=== PATIENT | female | born 1995 | race Hispanic/Latino ===

== ENCOUNTER 2022-06-15 00:13 | Emergency (ER) | payer BC ==
[~2022-06-15] VITALS: Ht 152.4 cm; Wt 76.2 kg
[2022-06-15] MEDS ORDERED: ACET-2079 PO (01:49)
[2022-06-15] MEDS ORDERED: PENI500T2 PO (01:49)
[2022-06-15] MEDS ORDERED: HYDROCODONE/ACETAMINOPHEN 10/325 MG TAB PO ONE (02:00)
[2022-06-15 02:04] VITALS: BP 139/76
== END 2022-06-15 01:58 | disposition home or self-care (01) ==
LOC: EDH 00:13
DX: K08.89 Other specified disorders of teeth and supporting structures (principal); T36.8X5A Adverse effect of other systemic antibiotics, initial encounter; Y92.89 Other specified places as the place of occurrence of the external cause
CPT/HCPCS: 93005

== ENCOUNTER 2025-02-01 18:26 | Emergency (ER) | payer SELFPAY ==
[~2025-02-01] VITALS: Ht 152.4 cm; Wt 81.6 kg
[~2025-02-01 18:26] MED LIST: ACET-2079 PO; PENI500T2 PO
--- NOTE | 2025-02-01 19:01 | NUR ---
PT PLACED INTO FAST TRACK AT THIS TIME
[2025-02-01 19:13] LABS: IMMATURE GRANULOCYTE ABSOLUTE 0.04 K/uL (0-1); NUCLEATED RED BLOOD CELLS 0.0 % (0.0-0.19); PLATELET COUNT (AUTO) 417 K/uL (130-400); RED BLOOD CELL COUNT(AUTO) 4.70 MIL/uL (4.00-5.50); RED CELL DISTRIBUTION WIDTH 12.7 % (11.0-15.5); WHITE BLOOD COUNT (AUTO) 12.4 K/uL (4.8-10.8)
[2025-02-01 19:35] LABS: CREATININE 0.6 mg/dL (0.5-1.0); GLOMERULAR FILTR. RATE CALC 124.0 mL/min (>90); GLUCOSE,RANDOM 203.0 mg/dL (70-105); SODIUM SERUM 141.0 mmol/L (136-145); UREA NITROGEN, BLOOD 16.0 mg/dL (7-18)
--- NOTE | 2025-02-01 20:34 | ERN ---
General Chief Complaint: Tooth Ache/Pain Stated Complaint: TOOTHACHE Time Seen by MD: 18:29 Time Seen by Midlevel: 18:29 Source: patient History of Present Illness Initial Comments The patient is a 29-year-old female with no significant past medical history presenting to the emergency department for evaluation of generalized body weakness. The patient states she was currently battling a tooth infection. She was seen at a local clinic a proximally two days ago and was started on a moxicillin. She does report having pain to her left upper molar but states that today she felt "off" with palpitations and wanted further evaluation. Allergies: Coded Allergies: No Known Drug Allergies (Unverified Allergy, Unknown, 06/15/22) Home Meds Active Scripts Acetaminophen with Codeine (Acetaminophen-Cod #3 Tablet) 1 Each Tablet, 1 TAB PO Q6H PRN for SEVERE PAIN (7-10), #12 TAB 0 Refills Prov:JEFF MONROY MD 06/15/22 Penicillin V Potassium (Penicillin V Potassium) 500 Mg Tablet, 1 TAB PO TID for 7 Days, #21 TAB 0 Refills Prov:JEFF MONROY MD 06/15/22 Past Medical History Past Medical History: Other Medical History Other: pituitary tumor no tx Past Surgical History: None Social History Social History: Other ROS Dictation CONSTITUTIONAL: Negative except for HPI HEAD/FACE: Negative except for HPI EENT: Negative except for HPI RESPIRATORY: Negative except for HPI GASTROINTESTINAL/ABDOMINAL: Negative except for HPI GENITOURINARY: Negative except for HPI MUSCULOSKELETAL: Negative except for HPI INTEGUMENTARY: Negative except for HPI NEUROLOGICAL/PSYCH: Negative except for HPI HEMATOLOGIC/LYMPHATIC: Negative except for HPI All Systems Negative, Except as noted above. 13 point review of systems assessed and all negative except for above. Physical Exam Physical Exam Dictation Vital Signs reviewed General Appearance: Alert, oriented x 3, no acute distress, well developed, nourished. Head and Face: non-traumatic. Eyes: PERRL, pink conjunctivas, eyelid no trauma, anterior chamber with arcus senilis. Ears: Pinnas intact and no signs of trauma or erythema ear canals clear and no discharge TM no erythema Nose: No discharge, no bleeding. Oropharynx: Mouth normal, tongue pink, pharynx clear,no erythema, tonsils no exudates, no abscesses noted, mucous membrane moist Neck: Supple, non-tender, no thyromegaly, no masses, no JVD, no bruits Breast:Deferred Chest:No tenderness, no crepitus, no paradoxical movement, no retractions Lungs:Clear, well-ventilated, symmetric, no rales, no wheezing, no rhonchi, no stridor, good breath sounds bilaterally Heart: Regular rate, regular rhythm, no murmur, no gallops Vascular: no peripheral edema, Abdomen: Soft, positive bowel sounds, nondistended, no guarding, nontender, no rebound, no masses no hepatomegaly, no splenomegaly, no Grant's sign, no hernias. Rectal: Deferred Genital: Deferred Neurological: Normal speech, motor function intact, sensory function intact Musculoskeletal: Neck nontender, full range of motion, back nontender, full range of motion, Extremities: nontender, full range of motion Skin: Color pink, dry, no turgor, no rash, no lacerations, no abrasions, no contusions. Lymphatic: Deferred Results Laboratory and Microbiology Lab and Micro Result Laboratory Tests Test 02/01/25 18:58 White Blood Count 12.4 K/uL (4.8-10.8) H Red Blood Count 4.70 MIL/uL (4.00-5.50) Hemoglobin 13.4 g/dL (12.0-16.0) Hematocrit 40.3 % (36-48) Mean Corpuscular Volume 85.7 fL (79-99) Mean Corpuscular Hemoglobin 28.5 pg (27.0-33.0) Mean Corpuscular Hemoglobin Concent 33.3 g/dL (32.0-36.0) Red Cell Distribution Width 12.7 % (11.0-15.5) Platelet Count 417 K/uL (130-400) H Mean Platelet Volume 10.5 fL (7.5-10.5) Immature Granulocyte % (Auto) 0.3 % (0-1) Neutrophils (%) (Auto) 64.6 % (40.0-77.0) Lymphocytes (%) (Auto) 26.7 % (21.0-51.0) Monocytes (%) (Auto) 5.9 % (3.0-13.0) Eosinophils (%) (Auto) 2.0 % (0.0-8.0) Basophils (%) (Auto) 0.5 % (0.0-5.0) Neutrophils # (Auto) 8.0 K/uL (1.8-7.7) H Lymphocytes # (Auto) 3.3 K/uL (1.0-4.8) Monocytes # (Auto) 0.7 K/uL (0.1-1.0) Eosinophils # (Auto) 0.25 K/uL (0.00-0.70) Basophils # (Auto) 0.06 K/uL (0.00-0.20) Absolute Immature Granulocyte (auto 0.04 K/uL (0-1) Nucleated Red Blood Cells 0.0 % (0.0-0.19) Sodium Level 141 mmol/L (136-145) Potassium Level 4.0 mmol/L (3.5-5.1) Chloride Level 101 mmol/L (101-111) Carbon Dioxide Level 29 mmol/L (21-32) Blood Urea Nitrogen 16 mg/dL (7-18) Creatinine 0.6 mg/dL (0.5-1.0) Glomerular Filtration Rate Calc 124 mL/min (>90) Random Glucose 203 mg/dL (70-105) H Total Calcium 9.1 mg/dL (8.5-10.1) Magnesium Level 1.80 mg/dL (1.80-2.40) Troponin I High Sensitivity 12 ng/L (4-50) Serum Test, Qualitative NEGATIVE (NEGATIVE) Labs Reviewed?: Yes MDM MDM: Differential diagnosis: Acute coronary syndrome, dehydration, electrolyte abnormality, dental abscess There are no social concerns with this patient. Prescription drug management Prescriptions will include: None Medical management and examination interpretation discussions were had by me with other qualified healthcare professionals as indicated for the patient's care. ED Course Orders Procedure Category Date Status Time 12 Lead Ekg Tracing- EKG 02/01/25 Logged Technical 18:37 Cbc With Differential LAB 02/01/25 Complete 18:37 Basic Metabolic Panel LAB 02/01/25 Complete 18:37 Testing, LAB 02/01/25 Complete Serum Hcg 18:37 Troponin I High LAB 02/01/25 Complete Sensitivity 18:37 Magnesium LAB 02/01/25 Complete 18:37 Chest 1vw RAD 02/01/25 Taken 18:37 Ceftriaxone 1g Vial PHA 02/01/25 In Process (Rocephine 1g Inj) 20:30 Current Medications Medications (Trade) Dose Ordered Sig/Aman Route PRN Reason Start Time Stop Time Status Last Admin Dose Admin Ceftriaxone Sodium (ROCEphine 1G INJ) 1 gm ONCE ONCE IM 02/01/25 20:30 02/01/25 20:31 UNV Vital Signs Date Time Temp Pulse Resp B/P (MAP) Pulse Ox O2 Delivery O2 Flow Rate FiO2 02/01/25 18:33 98.2 86 18 136/92 97 Room Air* 0 21 02/01/25 18:29 98.2 86 18 136/92 97 Room Air 0 DX & DISP Disposition: Discharge Departure Impression: Primary Impression: Pain, dental Additional Impression: Palpitations Condition: Stable Additional Instructions: Your blood work today is stable. You are not anemic. Your kidney function is normal. Your electrolytes are normal. Your cardiac enzymes are negative. Your EKGs normal. You were given a shot of antibiotics in the emergency department. Continue taking your amoxicillin and see a dentist as soon as possible. Follow up with your primary care doctor in 2-3 days for repeat evaluation. If you develop any new or worsening symptoms please report to the ER for further evaluation. Referrals: SELF,REFERRAL (PCP) Time of Disposition: 20:29 I have reviewed the case, and I agree with, Diagnosis and Plan I performed the substantive portion of the visit. I have reviewed and personally made and approve the management plan that is documented in the note by myself or the TC. I acknowledge for responsibility for the patient's management plan. SHERIE MARIN Feb 01, 2025 20:34
[2025-02-01 20:40] VITALS: BP 139/88; PULSE 83; RESP 19; TEMP 98.3; O2SAT 99
--- NOTE | 2025-02-01 21:23 | HMCIMG ---
EXAM: CR Chest, 1 view. CLINICAL HISTORY: Palpitations. COMPARISON: None. FINDINGS: The lungs show no infiltrate or other acute findings. No pleural effusion or pneumothorax. The cardiomediastinal silhouette is within normal limits. No acute osseous abnormality. IMPRESSION: No acute cardiopulmonary pathology is evident. /[place]
--- NOTE | 2025-02-03 08:32 | EKG ---
[facility] Test Date: 2025-02-01 Test Time: 19:06:15 Pat Name: DOV NÚÑEZ Department: ED Room: Gender: F Home Economist: 08 : 1995 Requested By: SHERIE MARIN Order Number: [id number] Reading MD: Janelle Will Measurements Intervals [place] Rate: 88 P: 37 [place]: 137 QRS: 56 QRSD: 77 T: 27 QT: 367 QTc: 444 Interpretive Statements Sinus rhythm Compared to ECG 06/15/2022 01:22:28 No significant changes Electronically Signed On 02-05-2025 14:29:10 CDT by Janelle Will Please click the below link to view image of tracing.
== END 2025-02-01 20:58 | disposition home or self-care (01) ==
LOC: EDH 18:26
DX: K08.89 Other specified disorders of teeth and supporting structures (principal); R00.2 Palpitations
CPT/HCPCS: 99285; 71045; 83735; 84484; 80048; 84703; 85025; 36415; 96372; 93005; J0696; 99284

== ENCOUNTER 2025-05-20 09:19 | Emergency (ER) | payer SELFPAY ==
[~2025-05-20] VITALS: Ht 149.9 cm; Wt 77.1 kg
[2025-05-20 09:53] LABS: CREATININE 0.6 mg/dL (0.5-1.0); GLOMERULAR FILTR. RATE CALC 124.0 mL/min (>90); GLUCOSE,RANDOM 321.0 mg/dL (70-105); IMMATURE GRANULOCYTE ABSOLUTE 0.04 K/uL (0-1); NUCLEATED RED BLOOD CELLS 0.0 % (0.0-0.19); PLATELET COUNT (AUTO) 306 K/uL (130-400); RED BLOOD CELL COUNT(AUTO) 5.11 MIL/uL (4.00-5.50); RED CELL DISTRIBUTION WIDTH 12.5 % (11.0-15.5); SODIUM SERUM 137.0 mmol/L (136-145); UREA NITROGEN, BLOOD 6.0 mg/dL (7-18); WHITE BLOOD COUNT (AUTO) 7.2 K/uL (4.8-10.8)
--- NOTE | 2025-05-20 09:56 | EKG ---
[facility] Test Date: 2025-05-20 Test Time: 09:51:52 Pat Name: DOV NÚÑEZ Department: ED Room: Gender: F Manager Clinical Pharmacy: [id number] : 1995 Requested By: MICKY BROWN Order Number: [id number] Reading MD: Pankaj Cuellar Measurements Intervals [place] Rate: 112 P: 34 [place]: 136 QRS: 78 QRSD: 75 T: 45 QT: 311 QTc: 425 Interpretive Statements Sinus tachycardia Compared to ECG 02/01/2025 19:06:15 Sinus rhythm no longer present Electronically Signed On 05-21-2025 16:33:10 CDT by Pankaj Cuellar Please click the below link to view image of tracing.
[2025-05-20 10:00] LABS: RAPID GROUP A STREP negative (NEGATIVE)
[2025-05-20 10:04] LABS: SARS-CoV-2, RNA, NAAT NEGATIVE SARS CoV-2 (NEGATIVE)
[2025-05-20 10:10] LABS: INFLUENZA TYPE B Negative For Type B (NEGATIVE)
--- NOTE | 2025-05-20 10:28 | ERN ---
ED Note History of Present Illness Stated Complaint: MULTIPLE COMPLAINT Chief Complaint: Multiple Complaints Time Seen by MD: 09:27 Dictation: 29-year-old female presenting to the emergency department with fever cough cold congestion and nausea symptoms for the past few days worsened today patient feels weak and has body aches Allergies: Coded Allergies: No Known Drug Allergies (Unverified Allergy, Unknown, 06/15/22) Home Meds Active Scripts Acetaminophen with Codeine (Acetaminophen-Cod #3 Tablet) 1 Each Tablet, 1 TAB PO Q6H PRN for SEVERE PAIN (7-10), #12 TAB 0 Refills Prov:JEFF MONROY MD 06/15/22 Penicillin V Potassium (Penicillin V Potassium) 500 Mg Tablet, 1 TAB PO TID for 7 Days, #21 TAB 0 Refills Prov:JEFF MONROY MD 06/15/22 Past Medical History Past Medical History: Other Additional Past Medical Hx: PITUATARY TUMOR Surgical History: None Social History: Other Review of System Dictation Constitutional: Per HPI Eyes: Negative for injury, pain,redness, and discharge ENT: Negative for injury,pain or swelling Cardiovascular: Negative for chest pain, palpitations, and edema Respiratory: Per HPI Abdomen/GI: Negative for abdominal pain, nausea, vomiting, diarrhea, and constipation Back: Negative for injury and pain : Negative for injury, bleeding and discharge MS/Extremity: Negative for injury and deformity Skin: Negative for rash, and discoloration Neuro: Negative for headache, weakness, numbness, tingling, and seizure Psych: Negative for suicide ideation, homicidal ideation, and hallucinations Initial Vital Sign VS Vital Signs Date Time Temp Pulse Resp B/P (MAP) Pulse Ox O2 Delivery O2 Flow Rate FiO2 05/20/25 09:20 103.6 126 18 119/67 98 Room Air 0 05/20/25 11:04 21 Physical Exam Dictation General: awake, alert, afebrile, Head/Face: Normocephalic, atraumatic Eyes: PERRL, EOMI, vision at baseline ENT: oral cavity clear, TMs clear, no signs of infection Neck: Trachea midline, supple, no nuchal rigidity Cardiovascular: Tachycardia normal S1/S2, No MRGs, no JVD Respiratory: CTAB, no respiratory distress, No rales or wheezes Abdomen: Soft, non-tender, non-distended, normal bowel sounds, no guarding or rebound. Skin: Warm, dry, normal turgor, no rash MS/Extremity: Pulses equal, no cyanosis, neurovascular intact, FROM Neuro: COAx4, GCS 15, strength 5/5, CN 2-12 intact, normal cerebellar exam, normal gait, Psych: Normal behavior, mood, and affect normal Results (Laboratory/Radiology) Laboratory/Radiology Laboratory Tests Test 05/20/25 09:27 05/20/25 09:39 Influenza Type A Antigen Positive For Type A Influenza Type B Antigen Negative For Type B SARS-CoV-2, RNA, NAAT NEGATIVE SARS CoV-2 Group A Streptococcus Rapid negative (NEGATIVE) White Blood Count 7.2 K/uL (4.8-10.8) Red Blood Count 5.11 MIL/uL (4.00-5.50) Hemoglobin 14.1 g/dL (12.0-16.0) Hematocrit 42.2 % (36-48) Mean Corpuscular Volume 82.6 fL (79-99) Mean Corpuscular Hemoglobin 27.6 pg (27.0-33.0) Mean Corpuscular Hemoglobin Concent 33.4 g/dL (32.0-36.0) Red Cell Distribution Width 12.5 % (11.0-15.5) Platelet Count 306 K/uL (130-400) Mean Platelet Volume 10.7 fL (7.5-10.5) H Immature Granulocyte % (Auto) 0.6 % (0-1) Neutrophils (%) (Auto) 84.5 % (40.0-77.0) H Lymphocytes (%) (Auto) 7.0 % (21.0-51.0) L Monocytes (%) (Auto) 5.8 % (3.0-13.0) Eosinophils (%) (Auto) 1.5 % (0.0-8.0) Basophils (%) (Auto) 0.6 % (0.0-5.0) Neutrophils # (Auto) 6.1 K/uL (1.8-7.7) Lymphocytes # (Auto) 0.5 K/uL (1.0-4.8) L Monocytes # (Auto) 0.4 K/uL (0.1-1.0) Eosinophils # (Auto) 0.11 K/uL (0.00-0.70) Basophils # (Auto) 0.04 K/uL (0.00-0.20) Absolute Immature Granulocyte (auto 0.04 K/uL (0-1) Nucleated Red Blood Cells 0.0 % (0.0-0.19) Sodium Level 137 mmol/L (136-145) Potassium Level 3.6 mmol/L (3.5-5.1) Chloride Level 99 mmol/L (101-111) L Carbon Dioxide Level 25 mmol/L (21-32) Blood Urea Nitrogen 6 mg/dL (7-18) L Creatinine 0.6 mg/dL (0.5-1.0) Glomerular Filtration Rate Calc 124 mL/min (>90) Random Glucose 321 mg/dL (70-105) H Lactic Acid Level 1.6 mmol/L (0.8-2.5) Total Calcium 8.7 mg/dL (8.5-10.1) Serum Test, Qualitative NEGATIVE (NEGATIVE) Labs Reviewed?: Yes ED Course ED Course Orders Procedure Category Date Status Time Covid Rna Naat LAB 05/20/25 Complete 09:25 Influenza Type A & B, LAB 05/20/25 Complete Rapid 09:25 Rapid (Group A Strep) LAB 05/20/25 Complete 09:25 Acetaminophen 500mg PHA 05/20/25 Complete Tab (Tylenol 500mg T 09:30 Cbc With Differential LAB 05/20/25 In Process 09:26 Basic Metabolic Panel LAB 05/20/25 Complete 09:26 Lactic Acid LAB 05/20/25 Complete 09:26 Blood Cult JOSE ALFREDO 05/20/25 In Process 09:26 Chest 1vw RAD 05/20/25 Resulted 09:26 Testing, LAB 05/20/25 Complete Serum Hcg 09:26 12 Lead Ekg Tracing- EKG 05/20/25 Complete Technical 09:26 Ceftriaxone 2gm Vial PHA 05/20/25 Complete (Rocephin 2gm Inj) 09:27 0.9%Nacl 1000ml (Ns PHA 05/20/25 Complete 1000ml) 09:30 Ondansetron 4mg Inj PHA 05/20/25 Complete (Zofran 4mg Inj) 10:30 Current Medications Medications (Trade) Dose Ordered Sig/Aman Route PRN Reason Start Time Stop Time Status Last Admin Dose Admin Acetaminophen (TYLenol 500MG TAB) 1,000 mg ONCE ONCE PO 05/20/25 09:30 05/20/25 09:31 DC 05/20/25 09:57 Ceftriaxone Sodium (Rocephin 2gm Inj) 2 gm ONCE STAT IVPB 05/20/25 09:27 05/20/25 09:30 DC 05/20/25 11:16 Ondansetron HCl (zoFRAN 4MG INJ) 4 mg ONCE ONCE IVP 05/20/25 10:30 05/20/25 10:31 DC 05/20/25 11:16 Sodium Chloride 1,000 ml @ 0 mls/hr ONCE ONCE IV 05/20/25 09:30 05/20/25 09:31 DC 05/20/25 11:16 Vital Signs Date Time Temp Pulse Resp B/P (MAP) Pulse Ox O2 Delivery O2 Flow Rate FiO2 05/20/25 11:04 103.6 126 18 119/67 98 Room Air* 0 21 05/20/25 09:57 103.6 05/20/25 09:20 103.6 126 18 119/67 98 Room Air 0 Medical Decision Making MDM MDM: Differential diagnosis: Rationale: Tests considered and ordered secondary to shared decision making include: Previous outside records reviewed: Old ER visits. Risk of complication and/or morbidity or mortality of patient management: None Medications-Per medication reconciliation Need for hospitalization: Patient does not meet criteria for hospitalization. Need for emergency major/minor surgery: No There are no social concerns with this patient. Prescription drug management Prescriptions will include symptomatic care Patient's prior external medical records from other ER visits were reviewed by me as indicated. Prior testing and results from previous visits were reviewed. Prior tests were taken into account with medical decision making and resource utilization, independent historian/historians were used to obtain complete medic al history. I independently interpreted the test that were performed, results were reviewed by me and considered findings on radiology if ordered. Medical management and examination interpretation discussions were had by me with other qualified healthcare professionals as indicated for the patient's care. 29-year-old female with flu a viral syndrome, stable exam and workup improved with IV fluids prescriptions given. DX & DISP Disposition: Discharge Departure Impression: Primary Impression: Influenza A Additional Impression: Acute viral syndrome Condition: Stable Scripts Ondansetron (Ondansetron Odt) 4 Mg Tab.rapdis 1 TAB PO BID PRN for nausea/vomiting for 5 Days, #10 TAB 0 Refills Prov: MICKY BROWN MD 05/20/25 Oseltamivir Phosphate (Tamiflu) 75 Mg Cap 75 MG PO BID for 5 Days, #10 CAP Prov: MICKY BROWN MD 05/20/25 Referrals: SELF,REFERRAL (PCP) MICKY BROWN MD May 20, 2025 10:28
--- NOTE | 2025-05-20 10:31 | HMCIMG ---
EXAM: CR Chest, 1 View. CLINICAL HISTORY: COUGH COMPARISON: 02/01 20:03 EDT CR - CHEST 1VW FINDINGS: LUNGS: There is no mass, infiltrate, or acute pulmonary abnormality. PLEURAL SPACES: No pleural effusion or pneumothorax. MEDIASTINUM: The cardiomediastinal silhouette is within normal limits. BONES: No aggressive appearing osseous lesion seen. IMPRESSION: No acute cardiopulmonary pathology is evident. /[place]
[2025-05-20 11:09] LABS: INFLUENZA TYPE A Positive For Type A (NEGATIVE)
[2025-05-20] MEDS: 0.9%NACL 1000ML 1,000 ML IV ONE (11:16)
[2025-05-20] MEDS ORDERED: ONDA-243 PO (11:47)
[2025-05-20] MEDS ORDERED: OSEL75 PO (11:47)
[2025-05-20 12:18] VITALS: TEMP 100.3
[2025-05-20 12:19] VITALS: BP 99/57; PULSE 111; RESP 18; TEMP 100.2; O2SAT 95
== END 2025-05-20 12:35 | disposition home or self-care (01) ==
LOC: EDH 09:19
DX: J10.1 Influenza due to other identified influenza virus with other respiratory manifestations (principal); Z20.822 Contact with and (suspected) exposure to COVID-19; Z79.899 Other long term (current) drug therapy
CPT/HCPCS: 99285; 96365; 71045; 87635; 96375; 80048; 84703; 85025; 87040 ×2; 87880; 87804 ×2; 83605; 36415; 93005; J7030; J0696; J2405